=== PATIENT | female | born 1985 | race Caucasian/White ===

== ENCOUNTER 2020-08-18 19:05 | Emergency (ER) | payer OTHER ==
[~2020-08-18] VITALS: Ht 160 cm; Wt 93.2 kg
[2020-08-18] MEDS ORDERED: HYDROCODONE/ACETAMINOPHEN 5-325 MG TABLET PO ONE (21:30)
[2020-08-18 21:56] VITALS: BP 125/87
== END 2020-08-19 00:36 | disposition home or self-care (01) ==
LOC: EMS 19:05
DX: S39.012A Strain of muscle, fascia and tendon of lower back, initial encounter (principal); R51.9 Headache, unspecified; M54.2 Cervicalgia; W19.XXXA Unspecified fall, initial encounter; Y93.89 Activity, other specified; Y92.89 Other specified places as the place of occurrence of the external cause; Y99.8 Other external cause status
CPT/HCPCS: 70450; 72125; 72131; 99284